=== PATIENT | female | born 1985 | race Hispanic/Latino ===

== ENCOUNTER 2016-12-02 17:56 | Inpatient (IN) | payer BC, OTHER ==
[2016-12-02 18:21] VITALS: BMI 29.0
[2016-12-02] MEDS ORDERED: Lactated Ringer's 1,000 ML IV SCH (18:30)
[2016-12-02 18:48] LABS: BASO # 0.1 K/uL (0.0-0.2); BASO % 0.6 % (0.0-2.0); EOS # 0.1 K/uL (0.0-0.7); EOS % 0.6 % (0.0-4.0); HEMATOCRIT 33.9 % (34.0-47.0); LYMPH # 1.6 K/uL (1.0-4.3); MEAN CELL VOLUME 90.9 fL (81.0-99.0); MEAN CORPUSCULAR HEMOGLOBIN 30.1 pg (27.0-31.0); MEAN CORPUSCULAR HGB CONC 33.1 g/dL (33.0-37.0); MEAN PLATELET VOLUME 11.1 fL (7.2-11.7); MONO # 0.6 K/uL (0.0-0.8); MONO % 5.8 % (0.0-10.0); RED CELL DISTRIBUTION WIDTH 14.3 % (11.5-14.5); WHITE BLOOD COUNT 10.9 K/uL (4.8-10.8)
[2016-12-02 18:54] LABS: CHLORIDE 104 mmol/L (98-107); POTASSIUM 3.8 mmol/L (3.6-5.2); SODIUM 134 mmol/L (132-148)
[2016-12-02 18:56] LABS: ALB/GLOB RATIO 1.2 (1.0-2.1); AST/SGOT 16 U/L (14-36); BILIRUBIN,TOTAL 0.5 mg/dL (0.2-1.3); CARBON DIOXIDE 20 mmol/L (22-30); GFR AFRICAN-AMERICAN > 60; TOTAL PROTEIN 6.8 g/dL (6.3-8.3)
[2016-12-02 18:57] LABS: ALKALINE PHOSPHATASE 196 U/L (38-126); ALT/SGPT 19 U/L (9-52); BLOOD UREA NITROGEN 13 mg/dL (7-17); CALCIUM 8.8 mg/dl (8.6-10.4); GLUCOSE,RANDOM 84 mg/dL (65-105)
[2016-12-02 19:01] LABS: RBC URINE 17 /hpf (0-3); TRANSITIONAL EPITHIAL < 1 /hpf (0-3); URINE BACTERIA OCC (<OCC); URINE BILIRUBIN NEGATIVE (NEGATIVE); URINE CALCIUM OXALATE CRYSTALS MOD /hpf (<OCC); URINE COLOR Yellow (YELLOW); URINE GLUCOSE (UA) NORMAL (Normal); URINE KETONE NEGATIVE (NEGATIVE); URINE PROTEIN NEGATIVE (NEGATIVE); URINE UROBILINOGEN NORMAL mg/dL (0.2-1.0); WBC URINE 11 /hpf (0-5)
[2016-12-02 19:02] LABS: URINE BLOOD 2+ (NEGATIVE); URINE LEUKOCYTE ESTERASE 1+ Leu/uL (Negative)
[2016-12-02] MEDS ORDERED: Oxytocin 30 UNIT 30 UNITS/500 ML BAG IV PRN (19:55)
--- NOTE | 2016-12-02 21:02 | OBPN ---
Datetime: 12/02/2016 20:59 IP Progress Impression: Arrest of dilatation/descent IP Procedures: Artificial ROM; Sterile Vag Exam FHR - Baseline A Provider: 130 IP Progress Note Comment: pt was examined at bbed side ve 5/70/-2 arom clear cont pitocin nticipate Vital Signs Provider: Reviewed; Within Normal Limits NICHD Accel Fetus A IP Provider: 15X15 FHR Category Provider Fetus A: Category I NICHD Variability Prov Fetus A: Moderate 6-25bpm Dilatation, Provider: 5 Effacement, Provider: 70 Station, Provider: -2 Datetime: 12/02/2016 18:15 Contraction Comments Provider: q1-3
[2016-12-02] MEDS ORDERED: Bupivacaine 0.125%/FentaNYL 200 ML EPI ONE (22:38)
[2016-12-02] MEDS ORDERED: Oxycodone/Acetaminophen 5/325 mg Tab PO PRN (23:05)
[2016-12-02] MEDS ORDERED: Oxytocin 30 UNIT 30 UNITS/500 ML BAG IV SCH (23:15)
--- NOTE | 2016-12-02 23:37 | OBDS ---
DELIVERY PERSONNEL Delivery Doctor: Jj Braswell MD Scrub Nurse: Jerica Pepper Roadway Engineer: Isabel Leung RN Anesthesiologist: dr Michelle MATERNAL INFORMATION Delivery Anesthesia: Epidural Medications in Delivery: pitocin Estimated Blood Loss (ml): 200 Placenta Cultured: No Maternal Complications: None RN Comments: alive male infant delivered. A/S 03/08. WT 7-2. DR BRASWELL ATTENDED TO DELIVERY Provider Comments: pt was fully dilated and pushing, atrumatc, spontenaoud delivery of head in OP po stion, no nuchal cord noted. atrumatic, spontaneus deliveyr of anterior followed by posterior shoulde r followed by delivery of body. both oral and nasal passages of baby were bulb suctioned. umbilical c ord was clmaped and cut. baby was handed to mother on abodmne with rn assistance. cord blood collect ed and sent x 2. spontaneous delivery of intact placenta with membranes. uterien massage, fundus fir m. good hemostasis, first degree perineal laceration noted and repaired with 2-0 chormic. good hemo stasis, no complications. live male agpars 9,9 wegiht of 7lbs 2 ounces ebl 200ml LABOR SUMMARY EDC: 12/16/2016 00:00 No. Babies in Womb: 1 Attempted: No Labor Anesthesia: Epidural LABOR INFORMATION Onset of Labor: 12/02/2016 09:00 Complete Dilatation: 12/02/2016 23:00 Oxytocin: Induction Group B Beta Strep: Negative Antibiotics Time of Last Dose: NONE Steroids Given: None Reason Steroids Not Administered: Not Applicable MEMBRANES Membranes Rupture Method: Artificial Rupture of Membranes: 12/02/2016 20:53 Length of Rupture (hrs): 2.17 Amniotic Fluid Color: Clear Amniotic Fluid Amount: Moderate Amniotic Fluid Odor: Normal STAGES OF LABOR Stage 1 hrs: 14 Stage 1 min: 0 Stage 2 hrs: 0 Stage 2 min: 3 Stage 3 hrs: 0 Stage 3 min: 5 Total Time in Labor hrs: 14 Total Time in Labor min: 8 VAGINAL DELIVERY Episiotomy: None Laceration Extension: First Degree Laceration Type: Perineal Laceration Repair: Yes Laceration Repair Note: first degree perineal laceration repaierd with 2-0 chormic Initial Vag Sponge Count: 10+1 Final Vag Sponge Count: 10+1 Initial Vag Sharps Count: 0 Final Vag Sharps Count: 1 Sponge Count Correct: Yes Sharps Count Correct: Yes BABY A INFORMATION Infant Delivery Date/Time: 12/02/2016 23:03 Method of Delivery: Vaginal Born in Route : No Forceps: N/A Vacuum Extraction: N/A Shoulder Dystocia : No SHOULDER DYSTOCIA BABY A Infant Delivery Date/Time: 12/02/2016 23:03 PRESENTATION/POSITION BABY A Presentation: Cephalic Cephalic Presentation: Vertex Vertex Position: direct occipito posterior Breech Presentation: N/A PLACENTA INFORMATION BABY A Placenta Delivery Time : 12/02/2016 23:08 Placenta Method of Delivery: Spontaneous Placenta Status: Delivered SCORES BABY A Heart Rate 1 min: >100 bpm Resp Effort 1 min: Good Cry Reflex Irritability 1 min: Cough or Sneeze or Pulls Away Muscle Tone 1 min: Active Motion Color 1 min: Body Mead, Extremities Blue SCORE 1 MIN: 9 Heart Rate 5 min: >100 bpm Resp Effort 5 min: Good Cry Reflex Irritability 5 min: Cough or Sneeze or Pulls Away Muscle Tone 5 min: Active Motion Color 5 min: Body Mead, Extremities Blue SCORE 5 MIN: 9 INFANT INFORMATION BABY A Gestational Age at Delivery: 38.0 Gestational Status: Term Outcome : Liveborn Condition : Stable Infant Sex: Male IDENTIFICATION/MEDS BABY A ID Band Number: [id number] ID Band Location: Left Leg; Left Arm Sensor Applied: Yes Sensor Number: [id number] Sensor Location : Cord Clamp Vitamin K Given : Not Given Erythromycin Given: Not Given WEIGHT/LENGTH BABY A Infant Birthweight (gms): 3240 Weight (lb): 7 Infant Weight (oz): 2 Infant Length Inches: 20.00 Length cms: 50.8 CORD INFORMATION BABY A No. Cord Vessels: 3 Nuchal Cord : N/A Cord Blood Taken: Yes Suction: Mouth ASSESSMENT BABY A Complications: None Physical Findings at Delivery: Within Normal Limits Respirations: Appears Normal Infant Care By: Mila RUIZ Transferred To: Remains with Mother
--- NOTE | 2016-12-02 23:39 | OBADHP ---
Datetime: 12/02/2016 20:59 FHR - Baseline A Provider: 130 Vital Signs Provider: Reviewed; Within Normal Limits NICHD Variability Prov Fetus A: Moderate 6-25bpm NICHD Accel Fetus A IP Provider: 15X15 FHR Category Provider Fetus A: Category I Dilatation, Provider: 5 Effacement, Provider: 70 Station, Provider: -2 Datetime: 12/02/2016 18:15 Admit Comment, IP Provider: at 38+weeks came with c/o ctxs started at 12 noon, q1-4 min,no vb, lof,+fm. in active labor, in office 4cm, report pain increasing intensity and freqquency 01/06 obhx 2 x pmh denies med pnv all nkda psh den soch denies a/p at 38=weeks in labor admit to l_d npo/iv labs cont kita and efm pain management anticipate Pelvic Type - PN: Adequate Extremities - PN: Normal Abdomen - PN: Normal Back - PN: Normal Breast - PN: Normal Lungs - PN: Normal Heart - PN: Normal Thyroid - PN: Normal Neurologic - PN: Normal HEENT - PN: Normal General - PN: Normal Presentation-Admit: Vertex Membranes, Provider: Intact Contraction Comments Provider: q1-3 Comments, ACOG Physical Exam: gravid,non tender ext no edema,no calf ten Gestation - Est Wks by US: 38.0 IP Hx Assessment: The History has been Reviewed and is Current IP Chief Complaint: Uterine contractions NICHD Decel Fetus A IP Provider: None Genitourinary Exam: Normal DTRs - PN: Normal IP Adm Impression: Term, intrauterine ; Active labor IP Admit Plan: Admit to unit; Initiate labor protocol
[2016-12-03 06:37] LABS: HEMATOCRIT 29.6 % (34.0-47.0); MEAN CELL VOLUME 90.7 fL (81.0-99.0); MEAN CORPUSCULAR HEMOGLOBIN 30.5 pg (27.0-31.0); MEAN CORPUSCULAR HGB CONC 33.6 g/dL (33.0-37.0); MEAN PLATELET VOLUME 10.9 fL (7.2-11.7); RED CELL DISTRIBUTION WIDTH 14.1 % (11.5-14.5); WHITE BLOOD COUNT 13.9 K/uL (4.8-10.8)
--- NOTE | 2016-12-03 13:45 | OBPPN ---
Datetime: 12/03/2016 13:44 PP Pain Prov: Within normal limits PP Nausea Prov: Denies PP Flatus Prov: Yes PP Breasts Prov: Normal PP Heart Prov: Normal PP Lungs Prov: Normal PP Abdomen/Uterus Prov: Normal PP Lochia Prov: Normal PP Vulva/Perineum Prov: Normal PP CVA Tenderness Prov: Normal PP Extremities Prov: Normal PP C/S Incision Prov: Not Applicable PP Progress Prov: Normal PP Impression Prov: Normal progression PP Plan Prov: Continue present management PP Progress Note Prov: pt seen and examined with no complaints, pain conterolled with meicaiton, amb uating, voiiding, breast feeding vss pe see above a/p s/p ppd#1 doing well -pain manetne -cnt breat feeding/ ambuation -antipate d/c in AM IP PP Procedures: None Vital Signs Provider PP: Reviewed; Within Normal Limits
--- NOTE | 2016-12-03 13:47 | OBDCSUM ---
Datetime: 12/03/2016 13:45 Discharged to, Provider: Home Follow up at, Provider: Dr Braswell Disch Instr Activity: Normal activity Disch Instr Diet: Regular Discharge Instructions, Provider: Routine instructions given Discharge Diagnosis, Provider: Term Delivered Discharge Time: 12/04/2016 09:00 Follow up in weeks, Provider: 6 weeks Disch Referrals: No Contraception discussed, Prov: Yes Disch Activity Restrictions: No sexual activity; Nothing in vagina - Judson, tampons, douche Discharge Comment, Provider: nothing per vagina x 6 weeks call md if any concerns Contraception after Delivery: Not Planning to Use
[2016-12-04 08:14] VITALS: BP 108/66; PULSE 78; RESP 18; TEMP 97.6; O2SAT 99
--- NOTE | 2016-12-04 08:14 | OBPPN ---
Datetime: 12/04/2016 08:13 PP Pain Prov: Within normal limits PP Nausea Prov: Denies PP Flatus Prov: Yes PP Abdomen/Uterus Prov: Normal PP Lochia Prov: Normal PP Extremities Prov: Normal PP Comments Phys Exam Prov: fudus below umblic ext no edema,no calf ten PP Impression Prov: Normal progression PP Plan Prov: Discharge PP Progress Note Prov: pt was seen at bedc side, pain under control,no n/v, tolerating deit,voiding, min lochia, flartus+ ppd#2 s/p dc home no sex motrin prn f/u in 6weeks Vital Signs Provider PP: Reviewed; Within Normal Limits
== END 2016-12-04 13:31 | disposition home or self-care (01) | DRG 775 ==
LOC: C.EROB 17:56 → C.4D 18:10 → C.4M 12-03 01:20
PROVIDERS: ADMIT Obstetrics & Gynecology; ATTEND Obstetrics & Gynecology
PROC: 10E0XZZ Delivery of Products of Conception, External Approach (ICD-10-PCS; principal; 2016-12-02)
PROC: 0HQ9XZZ Repair Perineum Skin, External Approach (ICD-10-PCS; 2016-12-02)
PROC: 10907ZC Drainage of Amniotic Fluid, Therapeutic from Products of Conception, Via Natural or Artificial Opening (ICD-10-PCS; 2016-12-02)
DX: O62.0 Primary inadequate contractions (principal); O70.0 First degree perineal laceration during delivery; Z37.0 Single live birth; Z3A.38 38 weeks gestation of pregnancy

== ENCOUNTER 2017-01-17 07:01 | Day surgery (SDC) | payer BC, OTHER ==
[2017-01-13 08:48] VITALS: BMI 25.0
[2017-01-17] MEDS ORDERED: Propofol 10 mg/ml Inj (20 ML) ONE (09:47)
[2017-01-17] MEDS ORDERED: Midazolam 2 MG/2 ML VIAL ONE (09:47)
[2017-01-17] MEDS ORDERED: Lactated Ringer's 1,000 ML IV ONE ×2 (09:50→11:55)
[2017-01-17] MEDS ORDERED: Bupivacaine HCl 0.25% PF (10 ml) Inj ONE (09:56)
--- NOTE | 2017-01-17 10:47 | PCM.SURG1 ---
Surgeon's Initial Post Op Note - Surgeon's Notes Surgeon: Lorie Braswell MD Brake Assembler: Riki Campbell MD Type of Anesthesia: General Endo Pre-Operative Diagnosis: Multiparity desiring permanent tubal sterilzation Operative Findings: anterverted uteurs, normal appearing uterus tubes and ovaries bilatearlly,. urine output 200cc Post-Operative Diagnosis: same as above Operation Performed: Laparascopic bilateral salpingectomy Specimen/Specimens Removed: Right and left fallopian tubes Estimated Blood Loss: EBL {In ML}: 5 Blood Products Given: N/A Drains Used: No Drains Post-Op Condition: Good Date of Surgery/Procedure: 01/17/17 Time of Surgery/Procedure: 10:30
[2017-01-17] MEDS ORDERED: HYDROmorphone 0.5 mg/0.5 ml ISec IVP PRN (10:54)
[2017-01-17 12:44] VITALS: RESP 18
[2017-01-17 13:50] VITALS: BP 111/68; PULSE 62; TEMP 97.8; O2SAT 100
--- NOTE | 2017-01-17 16:23 | OP ---
PROCEDURE DATE: 01/17/2017 PREOPERATIVE DIAGNOSIS: Multiparus desiring permanent tubal sterilization. POSTOPERATIVE DIAGNOSIS: Multiparus desiring permanent tubal sterilization. SURGEON: Lorie Braswell MD AMMONIA REFRIGERATION TECHNICIAN: Riki Campbell MD. Dr. Riki Campbell was human resources executive assistant present for entire case and essentially gaining entry laparoscopically, retracting, exposure, obtaining hemostasis, removing specimen, and closing all layers. TYPE OF ANESTHESIA: General endotracheal. OPERATING FINDINGS: Anteverted uterus; normal appearing uterus, tubes, and ovaries bilaterally. ESTIMATED BLOOD LOSS: 5 mL.. BLOOD PRODUCTS: None. URINE OUTPUT: 200 mL. COMPLICATIONS: None. SPECIMEN REMOVED: Right and left fallopian tubes. INDICATION: The patient is a 31-year-old para 3 that requests sterilization, permanent. DESCRIPTION OF PROCEDURE: The patient was taken to the operating room, where she was given general anesthesia. Once found to be adequate, she was positioned on the operating table in dorsal supine position with legs supported using stirrups. The patient was then prepped and draped in the usual sterile fashion. A time-out confirmed correct patient, correct procedure. A bimanual exam was performed with the above-mentioned findings. Following this, a Evans catheter was inserted into the urethra to drain the bladder. Carlin retractors were placed in the anterior and posterior fornix of the vagina and the cervix was adequately visualized. Single tooth tenaculum was placed in the anterior lip of the cervix and the uterus was then sounded. The HUMI-uterine manipulator was then inserted and the balloon was then insufflated with air. The HUMI-uterine manipulator was found to be in place. The single tooth tenaculum was removed and good hemostasis was noted. The Carlin retractor was then removed. The surgeon then re-gloved and attention was then turned to the abdomen. At this point, a small 5 mm infraumbilical incision was made after giving 0.25 of Marcaine. The skin was then tented up with a towel clamp and a Veress needle was then inserted. was placed with normal saline. Approximately 2.5 L of carbon dioxide gas was insufflated with normal pressure and cautery. A 5 mm laparoscopic trocar with camera and sleeve was inserted into the patient's abdominal cavity under direct visualization without any difficulty. The pelvic organs and abdominal cavity was then visualized. The patient was then placed in Trendelenburg position. The above-mentioned findings were noted. The second and third 5 mm trocars with sleeve were inserted into the right and left quadrants after Marcaine local anesthetic was inserted under direct visualization. There was good entry. Following this the uterus was then manipulated with manipulator and the fallopian tube was grasped and elevated with a Goodspring clamp and the LigaSure device was then used to help cauterize along the mesosalpinx along the entire portion of the fimbriated end along the mesosalpinx up to the cornua of the tube. This was both done on the right and left side. There was good hemostasis at all operated sites. The abdomen was then irrigated and there was good hemostasis noted. No other abnormalities were noted or visualized at this time. At this point, all instruments were carefully removed under direct visualization including the ports and there was good hemostasis noted. Gas was allowed to completely. The abdomen was then cleaned and the skin incisions were closed with 4-0 Monocryl in a running subcuticular fashion. The HUMI-uterine manipulator was also removed. There was good hemostasis. At the end of the procedures, all needles, sponge, and instrument counts correct x2. The patient tolerated the procedure well and transferred to recovery room in stable condition. Lorie Braswell MD
== END 2017-01-17 13:50 | disposition home or self-care (01) ==
LOC: C.SDS 07:01
PROVIDERS: ATTEND Obstetrics & Gynecology
DX: Z30.2 Encounter for sterilization (principal)
CPT/HCPCS: 58670; 88302; J1100; J1170; J1885; J2001; J2250; J2405; J2704; J3010; J7120